=== PATIENT | female | born 1945 | race Caucasian/White ===

== ENCOUNTER → 2024-02-21 13:53 | Outpatient (REF) | payer MEDICARE, BC, SELFPAY | LOC: HWRCS 13:53 | PROVIDERS: ATTENDING PHYSICIAN Nuclear Medicine Nuclear Cardiology; FAMILY PHYSICIAN Family Medicine | DX: R06.02 Shortness of breath (principal); R07.9 Chest pain, unspecified; I35.0 Nonrheumatic aortic (valve) stenosis; I44.7 Left bundle-branch block, unspecified | CPT/HCPCS: 93306 ==

== ENCOUNTER → 2024-10-31 13:27 | Outpatient (REF) | payer MEDICARE, BC, SELFPAY | LOC: RAD 13:27 | PROVIDERS: ATTENDING PHYSICIAN Nuclear Medicine Nuclear Cardiology; FAMILY PHYSICIAN Family Medicine | DX: I73.9 Peripheral vascular disease, unspecified (principal) | CPT/HCPCS: 93922; 93925 ==

== ENCOUNTER → 2025-01-17 09:37 | Outpatient (REF) | payer MEDICARE, BC, SELFPAY | LOC: HWRCS 09:37 | PROVIDERS: ATTENDING PHYSICIAN Nuclear Medicine Nuclear Cardiology; FAMILY PHYSICIAN Family Medicine | DX: I35.0 Nonrheumatic aortic (valve) stenosis (principal) | CPT/HCPCS: 93306 ==